=== PATIENT | female | born 2000 | race Caucasian/White ===

== ENCOUNTER 2024-06-05 15:47 | Outpatient (CLI) | payer OTHER, BC ==
[~2024-06-05] VITALS: Ht 149.9 cm; Wt 80.6 kg
[2024-06-05] MEDS ORDERED: PREN1CHW6 PO (16:02)
== END 2024-06-05 16:38 | disposition home or self-care (01) ==
LOC: M LDO 15:47
PROVIDERS: ATTEND Obstetrics & Gynecology
DX: O47.1 False labor at or after 37 completed weeks of gestation (principal); Z3A.37 37 weeks gestation of pregnancy
CPT/HCPCS: 59025; G0463